=== PATIENT | male | born 1995 | race Two or more races ===

== ENCOUNTER 2022-08-06 10:28 | Emergency (ER) | payer MEDICARE, MEDICAID ==
[~2022-08-06] VITALS: Ht 165.1 cm; Wt 70.0 kg
[2022-08-06 11:55] VITALS: BP 141/91
[2022-08-06] MEDS ORDERED: AZIT500T66 PO (12:31)
[2022-08-06] MEDS ORDERED: PROM1SOL4 PO (12:31)
== END 2022-08-06 12:37 | disposition home or self-care (01) ==
LOC: ER 10:37
DX: J03.90 Acute tonsillitis, unspecified (principal); R07.89 Other chest pain
CPT/HCPCS: 71045